=== PATIENT | female | born 1935 | race Caucasian/White ===

== ENCOUNTER → 2023-10-03 14:27 | Outpatient (REF) | payer MEDICARE, SELFPAY ==
[2023-10-03 15:29] LABS: % Basophils 0.9 % (0-2); % Eosinophils 2.2 % (0-6); % Immature Granulocytes 0.3 % (0-0.5); % Monocytes 8.4 % (1.7-9.3); % Neutrophils 74.2 % (42.2-75.2); Absolute Basophils 0.1 10^3/uL (0-0.2); Absolute Eosinophils 0.2 10^3/uL (0-0.7); Absolute Lymphocytes 1.4 10^3/uL (1.2-3.4); Absolute Monocytes 0.8 10^3/uL (0.1-0.6); Absolute Neutrophils 7.1 10^3/uL (1.4-6.5); Hematocrit 44.2 % (37.0-47.0); Hemoglobin 14.9 g/dL (12.0-16.0); Mean Corp Hgb Conc. 33.7 g/dL (33.0-37.0); Mean Corpuscular Volume 91.9 fL (81.0-99.0); Mean Platelet Volume 11.2 fL (7.4-10.4); Nucleated Red Blood Cells % 0 %; Platelet Count 221 10^3/uL (130-400); Red Blood Cell Count 4.81 10^6/uL (4.20-5.40); Red Cell Dist. Width 14.2 % (11.5-14.5); White Blood Cell Count 9.6 10^3/uL (4.8-10.8)
[2023-10-03 15:36] LABS: ALT (SGPT) 18 U/L (0-35); AST (SGOT) 26 U/L (14-36); Albumin 4.7 g/dl (3.5-5.0); Alkaline Phosphatase 126 U/L (38-126); Blood Urea Nitrogen 17 mg/dl (7-17); Calcium 10.3 mg/dl (8.4-10.2); Carbon Dioxide 26 mmol/L (22-30); Chloride 105 mmol/L (98-107); Glucose 144 mg/dl (70-99); HDL Cholesterol 60 mg/dl; LDL Cholesterol, Calculated 76 mg/dl; Potassium 4.1 mmol/L (3.5-5.1); Sodium 142 mmol/L (135-145); Total Bilirubin 1.6 mg/dl (0.2-1.3); Total Cholesterol 149 mg/dl (50-199); Total Protein 7.3 g/dl (6.3-8.2); Triglyceride 69 mg/dl (10-149); Very Low Density Lipoprotein 13 mg/dl (0-30); eGFR > 60.00
[2023-10-03 16:06] LABS: TSH 2.23 uIU/ml (0.47-4.68)
[2023-10-03 16:42] LABS: Folate 13.3 ng/ml (2.76-20); Vitamin B12 728 pg/ml (239-931)
[2023-10-04 10:48] LABS: Glycohemoglobin (HgbA1c) 6.5 % (4.0-5.6)
== END ==
LOC: OLABPV 14:27
PROVIDERS: ATTENDING PHYSICIAN Family Medicine
DX: Z00.00 Encounter for general adult medical examination without abnormal findings (principal); I48.21 Permanent atrial fibrillation; D68.69 Other thrombophilia; I50.32 Chronic diastolic (congestive) heart failure; I36.1 Nonrheumatic tricuspid (valve) insufficiency; I10 Essential (primary) hypertension; R73.01 Impaired fasting glucose; G60.9 Hereditary and idiopathic neuropathy, unspecified
CPT/HCPCS: 36415; 80053; 80061; 82607; 82746; 83036; 84443; 85025

== ENCOUNTER → 2023-10-10 10:37 | Outpatient (REF) | payer MEDICARE, SELFPAY ==
[2023-10-10 11:54] LABS: Calcium 9.9 mg/dl (8.4-10.2)
== END ==
LOC: OLABPV 10:37
PROVIDERS: ATTENDING PHYSICIAN Family Medicine
DX: E83.52 Hypercalcemia (principal)
CPT/HCPCS: 82310

== ENCOUNTER → 2023-10-11 12:12 | Outpatient (REF) | payer MEDICARE, SELFPAY | LOC: HWRAD 12:12 | PROVIDERS: ATTENDING PHYSICIAN Family Medicine | DX: Z78.0 Asymptomatic menopausal state (principal) | CPT/HCPCS: 77080 ==

== ENCOUNTER → 2024-01-15 10:18 | Outpatient (REF) | payer MEDICARE, SELFPAY ==
[2024-01-15 11:23] LABS: ALT (SGPT) 20 U/L (0-35); AST (SGOT) 25 U/L (14-36); Albumin 4.6 g/dl (3.5-5.0); Alkaline Phosphatase 124 U/L (38-126); Blood Urea Nitrogen 23 mg/dl (7-17); Calcium 10.2 mg/dl (8.4-10.2); Carbon Dioxide 25 mmol/L (22-30); Chloride 106 mmol/L (98-107); Glucose 139 mg/dl (70-99); Sodium 145 mmol/L (135-145); Total Bilirubin 1.7 mg/dl (0.2-1.3); Total Protein 7.3 g/dl (6.3-8.2); eGFR > 60.00
[2024-01-15 11:34] LABS: Microalbumin, Random Urine 1.2 mg/dl (0.6-1.7); Microalbumin/creatinine Ratio 27.3 mg/g
[2024-01-15 12:20] LABS: Glycohemoglobin (HgbA1c) 6.2 % (4.0-5.6)
== END ==
LOC: OLABPV 10:18
PROVIDERS: ATTENDING PHYSICIAN Family Medicine
DX: E11.9 Type 2 diabetes mellitus without complications (principal); I50.32 Chronic diastolic (congestive) heart failure; I10 Essential (primary) hypertension
CPT/HCPCS: 36415; 80053; 82043; 82570; 83036

== ENCOUNTER → 2024-05-07 09:32 | Outpatient (REF) | payer MEDICARE, SELFPAY ==
[2024-05-07 10:18] LABS: % Basophils 0.8 % (0-2); % Eosinophils 2.9 % (0-6); % Immature Granulocytes 0.6 % (0-0.5); % Monocytes 8.4 % (1.7-9.3); % Neutrophils 78.3 % (42.2-75.2); Absolute Basophils 0.1 10^3/uL (0-0.2); Absolute Eosinophils 0.3 10^3/uL (0-0.7); Absolute Immature Granulocytes 0.1 10^3/uL (0-0.05); Absolute Lymphocytes 0.9 10^3/uL (1.2-3.4); Absolute Monocytes 0.8 10^3/uL (0.1-0.6); Absolute Neutrophils 7.7 10^3/uL (1.4-6.5); Hematocrit 41.2 % (37.0-47.0); Hemoglobin 13.5 g/dL (12.0-16.0); Mean Corp Hgb Conc. 32.8 g/dL (33.0-37.0); Mean Corpuscular Hgb 29.3 pg (27.0-31.0); Mean Corpuscular Volume 89.4 fL (81.0-99.0); Nucleated Red Blood Cells % 0 %; Platelet Count 263 10^3/uL (130-400); Red Blood Cell Count 4.61 10^6/uL (4.20-5.40); Red Cell Dist. Width 14.4 % (11.5-14.5); White Blood Cell Count 9.8 10^3/uL (4.8-10.8)
[2024-05-07 10:38] LABS: ALT (SGPT) 15 U/L (0-35); AST (SGOT) 22 U/L (14-36); Albumin 4.3 g/dl (3.5-5.0); Alkaline Phosphatase 119 U/L (38-126); Blood Urea Nitrogen 14 mg/dl (7-17); Calcium 9.9 mg/dl (8.4-10.2); Carbon Dioxide 26 mmol/L (22-30); Chloride 101 mmol/L (98-107); Glucose 142 mg/dl (70-99); HDL Cholesterol 41 mg/dl; LDL Cholesterol, Calculated 60 mg/dl; Potassium 3.9 mmol/L (3.5-5.1); Sodium 141 mmol/L (135-145); Total Bilirubin 1.5 mg/dl (0.2-1.3); Total Cholesterol 118 mg/dl (50-199); Triglyceride 89 mg/dl (10-149); Very Low Density Lipoprotein 17 mg/dl (0-30); eGFR > 60.00
[2024-05-07 10:51] LABS: NT-proBNP 838 pg/ml
[2024-05-07 11:03] LABS: TSH 2.15 uIU/ml (0.47-4.68)
[2024-05-07 11:47] LABS: Glycohemoglobin (HgbA1c) 6.9 % (4.0-5.6)
[2024-05-07 12:10] LABS: Microalbumin, Random Urine 1.2 mg/dl (0.6-1.7); Microalbumin/creatinine Ratio 36.6 mg/g
== END ==
LOC: OLABPV 09:32
PROVIDERS: ATTENDING PHYSICIAN Family Medicine
DX: E11.9 Type 2 diabetes mellitus without complications (principal); I48.21 Permanent atrial fibrillation; I50.32 Chronic diastolic (congestive) heart failure; I36.1 Nonrheumatic tricuspid (valve) insufficiency; I10 Essential (primary) hypertension; T73.3XXA Exhaustion due to excessive exertion, initial encounter
CPT/HCPCS: 36415; 80053; 80061; 82043; 82570; 83036; 83880; 84443; 85025

== ENCOUNTER → 2024-05-14 08:51 | Outpatient (REF) | payer MEDICARE, SELFPAY | LOC: HWRCS 08:51 | PROVIDERS: ATTENDING PHYSICIAN Registered Nurse | DX: T73.3XXA Exhaustion due to excessive exertion, initial encounter (principal); I50.32 Chronic diastolic (congestive) heart failure | CPT/HCPCS: 93306 ==

== ENCOUNTER → 2024-05-20 06:56 | Outpatient (REF) | payer MEDICARE, SELFPAY | LOC: RCS 06:56 | PROVIDERS: ATTENDING PHYSICIAN Nurse Practitioner Gerontology; FAMILY PHYSICIAN Family Medicine; OTHER PHYSICIAN Internal Medicine | DX: R06.09 Other forms of dyspnea (principal) | CPT/HCPCS: 78452; 93017; A9500; J2785 ==

== ENCOUNTER → 2024-07-04 09:37 | Outpatient (REF) | payer MEDICARE, SELFPAY ==
[2024-07-04 10:56] LABS: Blood Urea Nitrogen 20 mg/dl (7-17); Carbon Dioxide 24 mmol/L (22-30); Chloride 107 mmol/L (98-107); Glucose 127 mg/dl (70-99); Potassium 4.1 mmol/L (3.5-5.1); Sodium 144 mmol/L (135-145); eGFR > 60.00
== END ==
LOC: OLABPV 09:37
PROVIDERS: ATTENDING PHYSICIAN Internal Medicine
DX: I50.32 Chronic diastolic (congestive) heart failure (principal)
CPT/HCPCS: 36415; 80048

== ENCOUNTER → 2024-09-23 09:24 | Outpatient (REF) | payer MEDICARE, SELFPAY ==
[2024-09-23 10:21] LABS: Hematocrit 42.5 % (37.0-47.0); Hemoglobin 14.4 g/dL (12.0-16.0); Mean Corp Hgb Conc. 33.9 g/dL (33.0-37.0); Mean Corpuscular Volume 89.9 fL (81.0-99.0); Nucleated Red Blood Cells % 0 %; Platelet Count 212 10^3/uL (130-400); Red Cell Dist. Width 14.6 % (11.5-14.5)
[2024-09-23 10:45] LABS: Microalb - Urine Creatinine 46.200 mg/dl
[2024-09-23 10:46] LABS: Microalbumin, Random Urine 1.1 mg/dl (0.6-1.7)
[2024-09-23 12:17] LABS: Glycohemoglobin (HgbA1c) 6.2 % (4.0-5.6)
== END ==
LOC: OLABPV 09:24
PROVIDERS: ATTENDING PHYSICIAN Family Medicine
DX: E11.29 Type 2 diabetes mellitus with other diabetic kidney complication (principal); R80.9 Proteinuria, unspecified; I10 Essential (primary) hypertension
CPT/HCPCS: 36415; 82043; 82570; 83036; 85025

== ENCOUNTER 2025-02-03 22:48 | Observation (INO) | payer MEDICARE, SELFPAY ==
[2025-02-03 19:41] VITALS: BP 163/86
[2025-02-03 19:46] VITALS: BP 163/86
[2025-02-03 19:51] VITALS: BMI 26.3
[2025-02-03 20:00] VITALS: BP 155/87
[2025-02-03 20:05] LABS: Hematocrit 45.3 % (37.0-47.0); Hemoglobin 15.4 g/dL (12.0-16.0); Mean Corp Hgb Conc. 34.0 g/dL (33.0-37.0); Mean Corpuscular Volume 90.1 fL (81.0-99.0); Nucleated Red Blood Cells % 0 %; Platelet Count 244 10^3/uL (130-400); Red Cell Dist. Width 14.5 % (11.5-14.5)
--- NOTE | 2025-02-03 20:23 | ED.GENMED ---
History of Present Illness
General
Chief Complaint: Visual Problem
Source: patient
Exam Limitations: none
Time Seen by Provider: 02/03/25 19:47
History of Present Illness
History of Present Illness:
See MDM
If applicable-neuro sx onset
Onset of symptoms known: Yes
Date of onset of symptoms: 02/03/25
Time pt last seen normal is known: Yes
Date last time pt seen normal: 02/03/25
Past History
Past History
ED Past Medical History: Arrthythmia (A-fib)
ED Past Surgical History: None
Social History
Tobacco: Non-smoker
Alcohol: None
Phy Exam
Physical Exam
Physical Exam:
See MDM
Scores
NIH Stroke Score
Level of Consciousness: 0 - Alert
LOC Questions: 0-Answers both correctly
LOC Commands: 0-Performs both correctly
Best Horizontal Gaze: 0-Normal
Visual Quach: 0=Normal, no visual loss
Facial Palsy: 0=Normal, symmetrical
Motor - Right Arm: 0=No drift 10 seconds
Motor - Left Arm: 0=No drift 10 seconds
Motor - Right Le-No drift 5 seconds
Motor - Left Le-No drift 5 seconds
Limb Ataxia: 0-Absent
Sensation: 0-Normal
Best Language: 0-No aphasia
Dysarthria: 0-Normal
Extinction and Inattention: 0-No abnormality
NIH Total Score:: 0
Course
Orders/Labs/Results
Orders:
Orders
02/03/25 19:57
Basic Metabolic Panel Urgent
Complete Blood Count/With Diff Urgent
02/03/25 20:21
CT Head W/o Iv Contrast Urgent
Comment:
Reason For Exam: ataxia, blurred vision
Abnormal Lab Results
02/03/25
19:57
MPV 11.7 H fL
(7.4-10.4)
Absolute Monos (auto) 0.7 H 10^3/uL
(0.1-0.6)
Glucose 165 H mg/dl
(70-99)
02/03/25 19:57
02/03/25 19:57
Vital Signs
Initial and Last Documented VS:
Initial Vital Signs
Temp Pulse Resp BP
97.6 F 88 16 163/86
02/03/25 19:41 02/03/25 19:41 02/03/25 19:41 02/03/25 19:41
Last Documented Vital Signs
Temp Pulse Resp BP Pulse Ox
97.6 F 89 35 155/87 97
02/03/25 19:41 02/03/25 20:15 02/03/25 20:15 02/03/25 20:00 02/03/25 20:15
MDM/Problems Addressed
Differential Diagnosis Includes:
Note:
CHIEF COMPLAINT(S)
Blurry vision and balance issues.
HISTORY OF PRESENT ILLNESS
The patient is an 89-year-old female with a history of atrial fibrillation (AFib) and neuropathy, who presents with blurred vision and balance difficulties. She reported that while watching television, she drifted off to sleep and awoke to find her
vision blurry. She can see distant objects but struggles with close-up vision. The visual issues are in both eyes equally and have not improved. There is no associated pain in her eyes. In addition to visual disturbances, the patient notes feeling
off balance, more so than typical due to her neuropathy. She denied any previous similar episodes. The patient is on apixaban (Eliquis). Concern for stroke was discussed. However, she is on Eliquis and not a TNK candidate. CT scan of the head is
planned to rule out acute causes such as a bleed or new mass.
PAST MEDICAL AND SURGICAL HISTORY
- Atrial Fibrillation
- Neuropathy
PHYSICAL EXAM
General: Alert, no acute distress.
Skin: Warm, dry.
Head: Normocephalic, atraumatic
Neck: Appears supple, trachea midline.
Eyes, Ears, Nose, Mouth, and Throat: Moist mucous membranes. Pupils equal and reactive. EOMI. No field cut noted
Cardiovascular: No signs of cyanosis
Respiratory: Respirations are non-labored.
Abdomen: Non-distended
Musculoskeletal: No deformities
Neurological: Patient is ataxic when ambulating
Psychiatric: Cooperative, appropriate mood and affect.
PLAN
- Obtain blood work to explore potential underlying causes.
- Conduct a CT scan of the head to rule out acute intracranial pathology.
- Keep the patient overnight for closer monitoring and potential MRI, and consultation with neurology.
DIFFERENTIAL DIAGNOSIS
The Differential Diagnosis includes, in no particular order and is not limited to:
- Stroke
- Transient ischemic attack (TIA)
- Ophthalmological disorders (e.g., cataracts, macular degeneration)
- Neurological disorders (e.g., brain tumor, aneurysm)
- Medication effect or toxicity
- Electrolyte imbalance
- Migraine with aura
- Vestibular disorders
- Central nervous system infection
- Dementia-related changes
SUMMARY OF ENCOUNTER
The patient was evaluated following an episode of blurred vision and worsened balance. Due to the potential for serious neurological conditions including stroke, a comprehensive evaluation including blood work and a CT scan was initiated. Continuous
monitoring is deemed necessary to ensure patient safety while results are pending, warranting overnight observation and possible further imaging such as MRI.
DISPOSITION
Admit for overnight observation.
MEDICAL DECISION MAKING
-Complexity of Data Reviewed: Chronic conditions affecting care (Atrial Fibrillation, Neuropathy). Differential Diagnosis list included.
1. Data:
Category 1:
- Testing ordered: CT scan of the head.
- Initial blood tests pending for underlying contributors.
Category 2:
- None discussed.
Category 3:
- None discussed.
2. Risk:
- Consideration of Admission/Observation: Escalation of care including admission/observation was considered given the complexity and risk of the patients presenting complaint and underlying comorbidities. Additionally, close monitoring was deemed
necessary to ensure patient safety.
DIAGNOSIS
- Blurred vision, unspecified (ICD-10: H53.8)
- Ataxia, unspecified (ICD-10: R26.0)
SUMMARY OF ENCOUNTER
The patient, an 89-year-old female with a history of atrial fibrillation and neuropathy, was evaluated in the emergency department due to blurred vision and worsened balance. Despite having an NIH stroke scale of zero, her symptoms were significant
enough to affect her ability to ambulate. Given her persistent symptoms and history, a comprehensive evaluation was initiated to rule out any serious neurological conditions. Since the patient is on apixaban (Eliquis), she is not a candidate for
thrombolytic therapy. Admission was deemed necessary for further transient ischemic attack workup and closer monitoring.
DISPOSITION
Admit for further workup.
ASSESSMENT
The current assessment focuses on the probability of a transient ischemic attack (TIA) given her persistent symptoms despite a zero NIH stroke scale.
PLAN
The plan involves admitting the patient for further workup to explore the possibility of a transient ischemic attack (TIA) and continue monitoring her overnight. Further imaging, like MRI if needed, and consultation with neurology will be considered
based on her symptom evolution.
MEDICATION RECONCILIATION
The patient is currently on apixaban (Eliquis) for atrial fibrillation.
MEDICAL DECISION MAKING
-Number and Complexity of Problems Addressed: Chronic conditions affecting care include Atrial Fibrillation and Neuropathy. Differential diagnosis includes Stroke, Transient Ischemic Attack (TIA), Ophthalmological Disorders, Neurological Disorders,
Medication effect or toxicity, Electrolyte imbalance, Migraine with Aura, Vestibular Disorders, Central Nervous System Infection, and Dementia-related changes.
-Data:
Category 1
Testing ordered includes a CT scan of the head to rule out any acute intracranial pathology.
Initial blood tests pending for underlying contributors.
-Risk: The decision was made to admit the patient for observation and further testing due to the complexity and risk presented by her persistent symptoms and underlying health conditions, alongside ensuring her safety while awaiting test results.
DIAGNOSIS
- Blurred vision, unspecified (ICD-10: H53.8)
- Ataxia, unspecified (ICD-10: R26.0)
*Pulse Oximetry
Oxygen Mode of Delivery: Room air
Patient hypoxic: no
*Critical Care Note
Total Time (30-74mins, 75-104mins- exclusive of procedures): Not Applicable
ED Attending Note
-
Portions of this chart may have been created with voice recognition software.� Occasional wrong word or��sound alike� substitutions may have occurred due to the inherent limitations of voice recognition software.
Discharge Plan
Departure
Patient Disposition: Admit
Date of Disposition: 02/03/25
Time of Disposition: 21:28
Admit to: Med/Surg
Presentation/result/management discussed w/ accepting MD/DO: Hospitalist
Discharge Problem:
Ataxia
Prescriptions:
No Action
cyanocobalamin (vitamin B-12) 1,000 MCG tablet
1,000 mcg PO DAILY
naproxen sodium [Aleve] 220 MG tablet
220 mg PO DAILYPRN PRN (Reason: mild pain)
pyridoxine (vitamin B6) [Vitamin B-6] 100 MG tablet
100 mg PO DAILY
Unisom (doxylamine) 25 MG tablet
25 mg PO HSPRN PRN (Reason: insomnia)
multivitamin with folic acid [Tab-A-Adriana] 1 TABLET tablet
1 tab PO DAILY
diltiazem HCl 360 mg Capsule,Extended Release 24hr
360 mg PO DAILY
furosemide 20 mg Tablet
20 mg PO DAILY PRN (Reason: for feet swelling)
Eliquis 5 mg Tablet
5 mg PO BID
clobetasol 0.025 % Cream
1 applic TOPICAL DAILY PRN (Reason: leg rash)
doxycycline hyclate 100 mg capsule
100 mg PO BID Qty: 20 0RF
hydroxyzine pamoate [Vistaril] 50 mg capsule
50 mg PO BID PRN (Reason: itching) Qty: 20 0RF
Interventions
Interventions:
*Risk Screen - Suicide Last Done: 02/03/25 19:48
*General Assessment Last Done: 02/03/25 19:48
*Neglect/Abuse Screening Last Done: 02/03/25 19:48
*ED- Fall Risk Assessment Last Done: 02/03/25 19:48
*ED COVID-19 Vaccine History Last Done: 02/03/25 19:48
*ED Influenza Vaccine History Last Done: 02/03/25 19:48
ED- Neurological Assessment Last Done: 02/03/25 19:51
ED-EENT Assessment Last Done: 02/03/25 19:51
ED Swallowing Screen Last Done: 02/03/25 19:51
Discharge Date and Time
Print Language: MAORI
[2025-02-03 20:26] LABS: Blood Urea Nitrogen 17 mg/dl (7-17); Calcium 10.1 mg/dl (8.4-10.2); Carbon Dioxide 25 mmol/L (22-30); Chloride 105 mmol/L (98-107); Estimated Creatinine Clearance 39 ml/min; Glucose 165 mg/dl (70-99); Sodium 139 mmol/L (135-145); eGFR > 60.00
--- NOTE | 2025-02-03 21:30 | HPS.HSE ---
Family Physician
-
Family Physician:
Chief Complaint
-
dizzy
off balance
blurry vison
History of Present Illness
89-year-old female with a history of atrial fibrillation (AFib) and neuropathy, who presents with blurred vision and balance difficulties since 6:30pm. She reported that while watching television, she drifted off to sleep and awoke to find her
vision blurry. she tried to get up and walk, she felt dizzy and was off balance. denied Keller, syncope.denied fever, chills, cough, congestion.denied chest pain, sob. denied abdominal pain,n,v,d. denied dysuria or hematuria.
CT head with no acute findings. Admitting for further manage
Medical History
Past Medical History
Past Medical History: Reports Other
Additional Past Medical History:
Psoriasis, idiopathic peripheral neuropathy, nonrheumatic tricuspid valve insufficiency, CHF, hypertension, PVC, A-fib, type 2 diabetes, osteopenia, diverticulosis, uterine prolapse
Past Surgical History: Reports Other
Additional Past Surgical History:
Cholecystectomy, appendectomy, right eye cataract extraction
Social History
Tobacco: Non-smoker
Alcohol: None
Drug: None
Family History
Family History: Not pertinent
Allergies / Home Medications
Allergies reflects when Allergies were last updated in [facility].
Home Medications with original date entered in [facility]
Allergy/Medication List:
Allergies
Allergy/AdvReac Type Severity Reaction Status Date / Time
codeine Allergy Hives Verified 04/24/19 13:35
Penicillins Allergy Unknown Verified 04/24/19 13:35
Home Medications
cyanocobalamin (vitamin B-12) 1,000 mcg tablet 1,000 mcg PO DAILY 04/29/18
doxylamine succinate 25 mg tablet (Unisom (doxylamine)) 25 mg PO HSPRN PRN insomnia 04/29/18
multivitamin with folic acid 400 mcg tablet (Tab-A-Adriana) 1 tab PO DAILY 04/29/18
naproxen sodium 220 mg tablet (Aleve) 220 mg PO DAILYPRN PRN mild pain 04/29/18
pyridoxine (vitamin B6) 100 mg tablet (Vitamin B-6) 100 mg PO DAILY 04/29/18
apixaban 5 mg tablet (Eliquis) 5 mg PO BID 07/03/22
clobetasol 0.025 % topical cream 1 applic topical DAILY PRN leg rash 07/03/22
diltiazem HCl 360 mg capsule,extended release 24 hr 360 mg PO DAILY 07/03/22
doxycycline hyclate 100 mg capsule 100 mg PO BID #20 caps 07/03/22
furosemide 20 mg tablet 20 mg PO DAILY PRN for feet swelling 07/03/22
hydroxyzine pamoate 50 mg capsule (Vistaril) 50 mg PO BID PRN itching #20 caps 07/03/22
Review of Systems
-
Constitutional: Reports No Symptoms
EENT: Reports Other (Blurry vision)
Respiratory: Reports No Symptoms
Cardiac: Reports No Symptoms
Abdomen/GI: Reports No Symptoms
: Reports No Symptoms
Musculoskeletal: Reports No Symptoms
Skin: Reports No Symptoms
Neurological: Reports Dizzy
Endocrine: Reports No Symptoms
Hematologic/Lymphatic: Reports No Symptoms
Psych: Reports No Symptoms
Physical Exam
Vital Signs
Vital Signs
Temp Pulse Resp BP Pulse Ox
97.6 F 89 35 155/87 97
02/03/25 19:41 02/03/25 20:15 02/03/25 20:15 02/03/25 20:00 02/03/25 20:15
Physical Exam
General: Well Developed, Well Nourished and No Apparent Distress
HEENT: NormoCephalic, Moist mucous membranes and Atraumatic
Respiratory: Clear
Cardiac: S1/S2 and Regular Rhythm; No Murmur or Rub
GI: Soft, Non Tender, Non Distended and Normal Bowel Sounds; No Organomegaly
Rectal: Deferred by Provider
Musculoskeletal: No Clubbing, No Cyanosis and No Edema
Skin: No Rash
Neuro: AO x 3 and Nonfocal/grossly intact
Psych: Calm
Laboratory Results
-
02/03/25 19:57
02/03/25 19:57
Laboratory Results
Total Bilirubin Cancelled 02/03/25 19:57
AST Cancelled 02/03/25 19:57
ALT Cancelled 02/03/25 19:57
Alkaline Phosphatase Cancelled 02/03/25 19:57
Data Reviewed
-
CT Scan: Report Reviewed by me
Lab Data: Labs Reviewed by me
Impression/Plan
-
# Visual disturbance/ataxia concern for TIA
- Obtain MRI,carotid US
- Obtain A1c, lipid profile
- On Eliquis
- PT/OT consulted
- Neurology consulted
- Head CT with no acute acute intracranial abnormality
# Paroxysmal A-fib
- Obtain EKG
- Eliquis and Cardizem continue
# Type 2 diabetes
- Sliding scale
- Farxiga continued
- CHO diet
#DVT prophylaxis
- On Eliquis
# CODE STATUS
- DNR
[2025-02-03 22:00] VITALS: BP 148/71
--- NOTE | 2025-02-03 22:13 | W.PN.UPDATE ---
Update Note
Progress Note Update
Patient seen in conjunction with SERVICE CLERK. I agree with the findings and history and physical. I concur with assessment and plan unless otherwise stated.
Briefly, this is a 89-year-old female with past medical history significant for atrial fibrillation who has been on apixaban for about 5 years presenting to the emergency department with episode of visual disturbance and gait abnormality.
She reports waking up in usual state of health. A few hours prior to coming to the emergency department she was sitting down watching TV when she dozed off for a few minutes. When she came back to she realized that she could not focus. She was
able to see distance clearly but she could not bring close objects into focus. She could not read due to these. She reports that the abnormality is in both eyes. There was no double vision. She denies any other focal deficits at that time. When
she attempted to get up she felt that she was reaching to 1 side and could not maintain her balance and felt the need to grab onto the diaz. She has continued to have the symptoms in the emergency department. She last took her Eliquis at 4 PM.
She denies any prior such episodes. She denies any prior history of visual disturbances. When she denies any numbness or tingling. She denies any nausea or vomiting.
In the emergency department she was afebrile, blood pressure was 150/87 with a pulse of 89 and she was satting 97% on room air. ECG is atrial fibrillation rate controlled. CT of the head shows no acute findings. CBC was unremarkable.
Electrolytes BUN/creatinine were normal.
NIHSS currently equals 0 but patient still has a focal deficit.
Assessment plan
Suspected TIA versus CVA
� Admit to telemetry observation
� MRI in a.m.
� Check carotid ultrasounds
� Continue anticoagulation with Eliquis for now,
� Check A1c, lipid panel
� Neurology consultation
DVT prophylaxis�on apixaban
CODE STATUS�full code
[2025-02-03 23:00] VITALS: BP 135/68
[2025-02-04] VITALS (10 sets, daily range): BP systolic 114–167; BP diastolic 67–98; PULSE 113–114; O2SAT 93; BMI 24.8
[2025-02-04] MEDS: LIPITOR 40 MG PO ×2 (01:10→17:03)
--- NOTE | 2025-02-04 01:18 | PTCARENOTE ---
patient arrived from ED via stretcher. patient pulled over into bed by staff. AOx3. tele monitor placed. assessment completed. patient oriented to room. POC ongoing.
[2025-02-04 05:41] LABS: Hematocrit 42.4 % (37.0-47.0); Hemoglobin 14.6 g/dL (12.0-16.0); Mean Corp Hgb Conc. 34.4 g/dL (33.0-37.0); Mean Corpuscular Volume 89.3 fL (81.0-99.0); Platelet Count 219 10^3/uL (130-400); Red Cell Dist. Width 14.2 % (11.5-14.5)
[2025-02-04 06:01] LABS: Blood Urea Nitrogen 13 mg/dl (7-17); Calcium 9.9 mg/dl (8.4-10.2); Carbon Dioxide 24 mmol/L (22-30); Chloride 108 mmol/L (98-107); Estimated Creatinine Clearance 58 ml/min; Glucose 140 mg/dl (70-99); HDL Cholesterol 52 mg/dl; LDL Cholesterol, Calculated 70 mg/dl; Potassium 4.0 mmol/L (3.5-5.1); Sodium 139 mmol/L (135-145); Very Low Density Lipoprotein 9 mg/dl (0-30); eGFR > 60.00
[2025-02-04] MEDS: FARXIGA 10 MG PO (07:59)
[2025-02-04] MEDS: CARDIZEM CD 360 MG PO (07:59)
[2025-02-04] MEDS: ELIQUIS 5 MG PO ×2 (07:59→19:43)
[2025-02-04 08:05] LABS: Glucose - Point of Care 138 mg/dl (70-99)
[2025-02-04 08:35] LABS: Glycohemoglobin (HgbA1c) 6.1 % (4.0-5.9)
--- NOTE | 2025-02-04 08:43 | CON.NEURO4 ---
Addendum entered and electronically signed by Martin Horton MD 02/04/25 18:21:
I saw and examined the patient along with the nurse practitioner Lizbeth Camp. I agree with the nurse practitioner assessment and the management plan. Given below is my addendum.
This is an 89-year-old female with a past medical history of atrial fibrillation on apixaban and peripheral neuropathy, who has presented to the hospital on 02/03/25 with report of blurred vision and ataxia. Patient reports that yesterday
(02/03/25), she was in her usual state when she drifted off to sleep on the couch while watching TV. She reports waking up around 1830 on , and noting that her vision in both eyes was blurry, like she couldn't focus. She tried to stand up and
walk and notes that she felt dizzy and off-balance. She denies history of speech difficulty, facial droop or any focal weakness of arms or legs.
1. CT Head 02/03/25: No acute intracranial abnormality.
2. MRI Brain 02/04/25: No evidence acute infarction. There is a small focus of T1/T2 hyperintense signal within the posterior right cerebellar hemisphere with associated volume loss. There is no associated blooming artifact. This may be sequelae of
chronic infarction. Moderate atrophy with sequelae of moderate chronic small vessel ischemic disease. Multiple small lacunar infarctions within the bilateral cerebral hemispheres.
3. MRA Head/Neck 02/04/25: This examination demonstrates no focal hemodynamically significant stenosis, aneurysm or occlusion.
. NIHSS was 0 in the ER.
. Today (02/04/25), patient reports that her vision is at baseline but she still feels dizzy when she stands up from sitting position, which she calls is like being unsteady on her feet. MRI of the brain does show multiple small, chronic, lacunar
infarctions within the bilateral cerebellar hemispheres. She does not have limb ataxia on neurologic examination. The patient has a diagnosed history of peripheral neuropathy. She is taking apixaban for Afib and denies missing any doses. The plan
is to get orthostatic vital signs twice a day and also have PT/OT to see the patient. The patient will benefit from inpatient rehab and also home PT/OT.
Follow-up in neurology clinic in 4 to 6 weeks as outpatient.
Will sign off. Please call if you have any question.
Original Note:
Consultation - Neurology 4
-
CONSULTING PHYSICIAN: Martin Horton MD
REFERRING PHYSICIAN: Hospitalists/JASSI Goins
DICTATED BY: JASSI Stevens
DATE/TIME OF REQUEST: 02/04/25
DATE/TIME OF CONSULTATION: 02/04/25
Reason for Consultation: Vision changes, ataxia
History of Present Illness:
This is an 89-year-old female who has presented to the hospital on 02/03/25 with report of blurred vision and ataxia. Patient reports that yesterday (02/03/25), she was in her usual state when she drifted off to sleep on the couch while watching
TV. She reports waking up around 1830 and noting that her vision in both eyes was blurry, like she couldn't focus. She tried to stand up and walk and notes that she felt dizzy and off-balance. CT head was obtained on arrival and is negative for any
acute abnormalities. NIHSS was 0 in the ER. She was not a candidate for TNK/IAT due to NIHSS 0 and apixaban usage. Today (02/04/25), patient reports that her vision is at baseline but she still feels dizzy and ataxic when she stands up and tries to
walk. She denies any headache, speech/swallow difficulty, and focal numbness/weakness. She is taking apixaban for Afib and denies missing any doses.
Past Medical History: Afib (apixaban), HTN, CHF, tricuspid valve insufficiency, DM, peripheral neuropathy, osteopenia, diverticulosis, uterine prolapse
Surgical History: Appendectomy, cholecystectomy, R cataract removal.
Family History: Reviewed and noncontributory.
Social History: Denies tobacco, alcohol, and illicit drug use.
Allergies: Penicillins, codeine.
Home Medications: See below.
Review of Symptoms:
Patient denies any fever, headache, chest pain, shortness of breath, GI or symptoms.
�Per the HPI.�All systems are reviewed negative except above.
Physical Exam:
The patient is afebrile, abdomen is nondistended, breathing is unlabored, skin is warm and dry, no edema.
NIH Stroke Scale:
I performed the NIH stroke scale on the patient on 02/04/25 at 1130. The patient scored 0 points on the NIH stroke scale assessment, which were assigned as follows: See below.
Neurologic Examination:
The patient is awake, alert and oriented x 3. She is able to follow commands and answer questions appropriately. There is no aphasia or dysarthria. On cranial nerve assessment, pupils are 3 mm bilateral, round and reactive to light and
accommodation. Visual quach are full. Extraocular movements are intact. Facial sensations are intact and bilaterally symmetrical, there is no facial asymmetry. Hearing is intact bilaterally to normal conversation volume. Tongue palate and uvula are
midline. Sternocleidomastoid strengths are full bilaterally. Motor strengths are 5/5 bilateral upper and lower extremities on medical research [place] scale. There is no drift or involuntary movement noted. There was no extinction noted on double
simultaneous stimulation. Coordination is intact by finger to nose bilaterally.
Lab Results: See below.
Neuro Imaging:
1. CT Head 02/03/25: No acute intracranial abnormality.
2. MRI Brain 02/04/25: No evidence acute infarction. There is a small focus of T1/T2 hyperintense signal within the posterior right cerebellar hemisphere with associated volume loss. There is no associated blooming artifact. This may be sequelae of
chronic infarction. Moderate atrophy with sequelae of moderate chronic small vessel ischemic disease. Multiple small lacunar infarctions within the bilateral cerebral hemispheres.
3. MRA Head/Neck 02/04/25: This examination demonstrates no focal hemodynamically significant stenosis, aneurysm or occlusion.
Differentials for the patient's presentation include:
1. Transient blurry vision and positional dizziness/ataxia; etiology is likely due to fluctuations in blood pressure, orthostatic hypotension. MRI brain and MRA head/neck are negative for any acute abnormalities/stroke. Symptoms not supportive of
TIA due to ongoing symptoms.
2. MRI brain demonstrates an old right cerebellar and multiple small chronic lacunar infarcts in bilateral cerebral hemispheres.
3. Afib on apixaban.
Patient has the following risk factors for their symptoms:
IV Tenecteplase/IAT candidacy: She was not a candidate for TNK/IAT due to NIHSS 0 and apixaban usage.
Recommendations:
-Continue home apixaban.
-Goal normotension. Check orthostatic vital signs as ordered BID.
-TTE was completed in 05/2024.
-PT/OT evaluations.
-Provide patient with a stroke education packet.
-Neurological checks per unit guidelines.
Discussed patient care with: Dr. Horton, the patient
Vital Signs and Labs
-
Vital Signs and Labs:
Vital Signs
Temp Pulse Resp BP Pulse Ox
97.4 F 72 16 115/67 98
02/04/25 11:54 02/04/25 11:54 02/04/25 11:54 02/04/25 11:54 02/04/25 11:54
Lab Results
02/04/25 05:15
02/04/25 05:15
Sodium 139 mmol/L (135-145) 02/04/25 05:15
Potassium 4.0 mmol/L (3.5-5.1) 02/04/25 05:15
BUN 13 mg/dl (7-17) 02/04/25 05:15
Glucose 140 mg/dl (70-99) H 02/04/25 05:15
Calcium 9.9 mg/dl (8.4-10.2) 02/04/25 05:15
LDL Cholesterol, Calc 70 mg/dl 02/04/25 05:15
Medications
-
Active Medications
Generic Name Dose Route Start Last Admin
Trade Name Freq PRN Reason Stop Dose Admin
Acetaminophen 650 mg 02/04/25 00:24
Acetaminophen 650 Mg Rectal Suppository RECTAL 03/04/25 00:23
Q4HPRN PRN
TANNER, mild pain, or temp >100.4F
Acetaminophen 650 mg 02/04/25 00:24
Acetaminophen 325 Mg Tablet PO 03/04/25 00:23
Q4HPRN PRN
TANNER, mild pain, or temp >100.4F
Apixaban 5 mg 02/04/25 08:00 02/04/25 07:59
Apixaban (Eliquis) 5 Mg Tablet PO 03/04/25 07:59 5 mg
BID RUBI Administration
Atorvastatin Calcium 40 mg 02/04/25 00:24 02/04/25 01:10
Atorvastatin (Lipitor) 40 Mg Tablet PO 03/04/25 00:23 40 mg
QPM RUBI Administration
Dapagliflozin 10 mg 02/04/25 08:00 02/04/25 07:59
Dapagliflozin (Farxiga) 10 Mg Tablet PO 03/04/25 07:59 10 mg
DAILY RUBI Administration
Dextrose 12.5 grams 02/04/25 00:24
Dextrose 50% (0.5 Grams/Ml) 50 Ml Syringe IV 03/04/25 00:23
[id number] PRN
hypoglycemia
Protocol
Diltiazem HCl 360 mg 02/04/25 08:00 02/04/25 07:59
Diltiazem 120 Mg Extended Release (24 H) Capsule PO 03/04/25 07:59 360 mg
DAILY RUBI Administration
Glucagon 1 mg 02/04/25 00:24
Glucagon 1 Mg Vial IM 03/04/25 00:23
PRN PRN
hypoglycemia
Protocol
Insulin Aspart 0 units 02/04/25 07:30 02/04/25 12:00
Insulin Aspart Low Resistance 300 Units/3 Ml Pen.Injctr SC 03/04/25 07:29 Not Given
AC RUBI
Protocol
Home Medications
�Medication �Instructions �Recorded
apixaban 5 mg tablet (Eliquis) 5 mg PO BID Blood Clot 07/03/22
Prevention/Tx
diltiazem HCl 360 mg 360 mg PO DAILY Heart 07/03/22
capsule,extended release 24 hr Disease/Condition
dapagliflozin propanediol 10 mg 10 mg PO DAILY Diabetes 02/03/25
tablet (Farxiga)
NIH Stroke Score
Subsequent NIH Scale
Date of Subsequent NIH Scale: 02/04/25
Time of Subsequent NIH Scale: 11:30
NIH Stroke Score
Level of Consciousness: 0 - Alert
LOC Questions: 0-Answers both correctly
LOC Commands: 0-Performs both correctly
Best Horizontal Gaze: 0-Normal
Visual Quach: 0=Normal, no visual loss
Facial Palsy: 0=Normal, symmetrical
Motor - Right Arm: 0=No drift 10 seconds
Motor - Left Arm: 0=No drift 10 seconds
Motor - Right Le-No drift 5 seconds
Motor - Left Le-No drift 5 seconds
Limb Ataxia: 0-Absent
Sensation: 0-Normal
Best Language: 0-No aphasia
Dysarthria: 0-Normal
Extinction and Inattention: 0-No abnormality
NIH Total Score:: 0
Modified [place] (mRS) Score
Modified [place] Scale (mRS): Moderately severe disability. Unable to attend to bodily needs/walk.
Score: 4
--- NOTE | 2025-02-04 09:32 | W.PN.HOSP.TC ---
Today's Communication/Plan
-
Neurology consult
PT/OT
Brain MRI
Assessment / Plan
Assessment / Plan
Gen-AAOx3, NAD
HEENT-NC, AT, anicteric, clear oral mm
Neck-supple
CV-reg, no M, +S1/S2
Lungs-clear B/L
Abd-soft, NT, ND
Ext-no edema
Musculoskeletal-no cyanosis, clubbing
Skin-warm and dry
Neuro-grossly non-focal
Psych-calm, cooperative
Visual changes/gait ataxia -nonfocal exam today. Neurology consulted. Brain MRI pending. CTA pending.
She denies history of TIA or stroke.
LDL 70, triglycerides 46, total cholesterol 131.
Permanent atrial fibrillation -continue Eliquis. She states she has been compliant with all doses.
Psoriasis
Idiopathic peripheral neuropathy
Chronic heart failure preserved EF -stable.
Essential hypertension -blood pressure elevated. Recheck pressure after dose of diltiazem.
DM 2 without hyperglycemia -hemoglobin A1c 6.1%. She is on Farxiga.
Osteopenia
Diverticulosis
uterine prolapse
DNR
Daughter updated at the bedside.
Anticipated Discharge: Within 24 hours
Subjective/Interval History
-
Date of Service: February 04, 2025
Patient seen and examined. States her vision is improving but not back to baseline. Has not gotten out of bed yet today.
Objective Data
-
Labs:
Laboratory Results
02/04/25
05:15
WBC 9.9
Hgb 14.6
Hct 42.4
Plt Count 219
Sodium 139
Potassium 4.0
Chloride 108 H
Carbon Dioxide 24
BUN 13
Creatinine 0.6
Glucose 140 H
Calcium 9.9
Vital Signs:
Vital Signs
Temp Pulse Resp BP Pulse Ox
97.8 F 104 17 161/79 95
02/04/25 07:43 02/04/25 07:43 02/04/25 07:43 02/04/25 07:43 02/04/25 07:43
I&O
02/03/25 02/04/25 02/05/25
06:59 06:59 06:59
Intake Total 480 / 480
Balance 480 / 480
Review of Systems
-
History Source: Patient
All other systems: Reviewed and negative
[2025-02-04 11:54] LABS: Glucose - Point of Care 122 mg/dl (70-99)
[2025-02-04 16:39] LABS: Glucose - Point of Care 134 mg/dl (70-99)
[2025-02-04] MEDS: MELATONIN 5 MG PO (21:13)
[2025-02-04 21:22] LABS: Glucose - Point of Care 108 mg/dl (70-99)
--- NOTE | 2025-02-04 22:00 | PTCARENOTE ---
patient requesting something for sleep. JASSI West notified. new orders obtained. See MAR for administration.
[2025-02-05 03:00] VITALS: BP 149/73
[2025-02-05 07:00] VITALS: BP 139/79
[2025-02-05 07:29] LABS: Glucose - Point of Care 121 mg/dl (70-99)
[2025-02-05] MEDS: FARXIGA 10 MG PO (07:46)
[2025-02-05] MEDS: CARDIZEM CD 360 MG PO (07:46)
[2025-02-05] MEDS: ELIQUIS 5 MG PO (07:47)
--- NOTE | 2025-02-05 09:15 | W.PN.HOSP.TC ---
Today's Communication/Plan
-
Add Toprol-XL
Assessment / Plan
Assessment / Plan
Gen-AAOx3, NAD
HEENT-NC, AT, anicteric, clear oral mm
Neck-supple
CV-rapid, irregular, no M, +S1/S2
Lungs-clear B/L
Abd-soft, NT, ND
Ext-no edema
Musculoskeletal-no cyanosis, clubbing
Skin-warm and dry
Neuro-grossly non-focal
Psych-calm, cooperative
Visual changes/gait ataxia -nonfocal exam today. Visual changes have improved back to baseline.
Brain MRI negative for acute infarct. 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 Multiple small lacunar infarctions
within the bilateral cerebral hemispheres.
MRA head and neck negative for significant vascular occlusion, aneurysm, stenosis.
She denies history of TIA or stroke.
LDL 70, triglycerides 46, total cholesterol 131.
Atorvastatin initiated this admission.
Not orthostatic based on blood pressure however heart rate does increase with standing.
Permanent atrial fibrillation -continue Eliquis. She states she has been compliant with all doses.
Having rapid ventricular response this morning, heart rate 127. Continue Cardizem, add Toprol-XL. Check EKG now. Discussed with nursing.
If no improvement in heart rate, consult cardiology. She sees Dr. Tyson.
Check TSH.
Psoriasis
Idiopathic peripheral neuropathy
Chronic heart failure preserved EF -stable.
Essential hypertension -continue Cardizem. Add Toprol-XL as above.
DM 2 without hyperglycemia -hemoglobin A1c 6.1%. She is on Farxiga.
Osteopenia
Diverticulosis
uterine prolapse
DNR
Dispo -PT/OT has recommended acute rehab however patient prefers to go home with home PT.
Goal is to improve heart rate prior to discharge. Discussed with patient and daughter at the bedside.
Daughter updated at the bedside.
Anticipated Discharge: Within 24 hours
Subjective/Interval History
-
Date of Service: February 05, 2025
Patient seen and examined. States her vision has improved. Asking to be discharged.
Objective Data
-
Vital Signs:
Vital Signs
Temp Pulse Resp BP Pulse Ox
97.8 F 85 18 139/79 95
02/05/25 07:00 02/05/25 07:00 02/05/25 07:00 02/05/25 07:00 02/05/25 07:00
I&O
02/04/25 02/05/25 02/06/25
06:59 06:59 06:59
Intake Total 480 / 480 480 / 480
Balance 480 / 480 480 / 480
Review of Systems
-
History Source: Patient
All other systems: Reviewed and negative
[2025-02-05 09:36] VITALS: BP 163/86; BP 164/92; BP 167/99; PULSE 106; PULSE 117; PULSE 142
[2025-02-05] MEDS: TOPROL XL 25 MG PO (09:39)
[2025-02-05 10:41] LABS: TSH 2.76 uIU/ml (0.47-4.68)
[2025-02-05 11:00] VITALS: BP 128/87
--- NOTE | 2025-02-05 11:31 | W.DS.TRANS ---
DC Summary - [employer]
-
Discharge Instructions:
Sleep Apnea Risk Low
Discharge Diagnosis/Procedures Gait dysfunction, visual changes, rapid atrial
fibrillation
Diet Diabetic, Carb Controlled
Activity As tolerated,With assistance
Driving Restrictions No driving
Bathing Restrictions None
Other Services PT,OT
Instructions:
Stand-Alone Forms:
Changes to Home Medications: No
Discharge Medications:
DC Medications w/original date entered in [facility]
apixaban 5 mg tablet (Eliquis) 5 mg PO BID Blood Clot Prevention/Tx 07/03/22
diltiazem HCl 360 mg capsule,extended release 24 hr 360 mg PO DAILY Heart Disease/Condition 07/03/22
dapagliflozin propanediol 10 mg tablet (Farxiga) 10 mg PO DAILY Diabetes 02/03/25
atorvastatin 40 mg tablet 40 mg PO QPM #30 tabs 02/05/25
metoprolol succinate 25 mg tablet,extended release 24 hr 25 mg PO DAILY #30 tabs 02/05/25
Home Medication Changes
Pending Results: No
--- NOTE | 2025-02-05 15:59 | CM ---
Addendum entered by Jimena Bray RN 02/05/25 16:07:
[place] letter explained .Pt did not sign .
Original Note:
Alert awake oriented patient who lives alone at [facility]. Spoke with patient she said she would like [facility] . Referral placed.
Pt refused acute rehab . Dgt Bella drive her home today.
No adaptive devices.
No VN / SNF hx.
Pharmacy [facility] [address]
PCP [address]
PLAN Home with [facility]
== END 2025-02-05 12:13 | disposition home or self-care (01) ==
LOC: 3 WEST ACU 22:48
PROVIDERS: Registered Nurse; ADMITTING PHYSICIAN Internal Medicine; ATTENDING PHYSICIAN Hospitalist; CONSULT PHYSICIAN Psychiatry & Neurology Neurology; EMERGENCY PHYSICIAN Student in an Organized Health Care Education/Training Program; FAMILY PHYSICIAN Family Medicine
DX: H53.8 Other visual disturbances (principal); R42 Dizziness and giddiness; I48.21 Permanent atrial fibrillation; J98.4 Other disorders of lung; G31.9 Degenerative disease of nervous system, unspecified; E11.42 Type 2 diabetes mellitus with diabetic polyneuropathy; L40.9 Psoriasis, unspecified; I50.32 Chronic diastolic (congestive) heart failure; G60.9 Hereditary and idiopathic neuropathy, unspecified; E11.65 Type 2 diabetes mellitus with hyperglycemia; I67.82 Cerebral ischemia; I11.0 Hypertensive heart disease with heart failure; I36.1 Nonrheumatic tricuspid (valve) insufficiency; M85.80 Other specified disorders of bone density and structure, unspecified site; Z98.41 Cataract extraction status, right eye; Z90.49 Acquired absence of other specified parts of digestive tract; Z87.19 Personal history of other diseases of the digestive system; Z88.0 Allergy status to penicillin; Z88.5 Allergy status to narcotic agent; Z66 Do not resuscitate; Z79.84 Long term (current) use of oral hypoglycemic drugs; Z79.01 Long term (current) use of anticoagulants; Z86.73 Personal history of transient ischemic attack (TIA), and cerebral infarction without residual deficits; Z79.899 Other long term (current) drug therapy; Z60.2 Problems related to living alone
CPT/HCPCS: 70450; 70544; 70548; 70551; 80048; 80061; 82962; 83036; 84443; 85025; 85027; 93005; 97116; 97163; 97167; 97535; 99285; A9585; G0378